=== PATIENT | female | born 1985 | race Caucasian/White ===

== ENCOUNTER 2024-07-18 09:37 | Inpatient (IN) | payer MEDICAID ==
[2024-07-18] MEDS ORDERED: Ondansetron 4 MG/2 ML SDV IVPUSH PRN (09:50)
[2024-07-18] MEDS ORDERED: Sodium Chloride 0.9% 10 ML Syringe FLUSH PRN (09:50)
[2024-07-18] MEDS ORDERED: Nalbuphine 10 MG/1 ML Vial IVPUSH PRN (09:50)
[2024-07-18] MEDS ORDERED: Lidocaine 1% 50 ML MDV INJECT PRN (09:50)
[2024-07-18] MEDS ORDERED: Oxytocin/0.9 % Sodium Chloride 30 UNIT/500 ML BAG IV SCH (10:00)
[2024-07-18] MEDS ORDERED: Lactated Ringers 1,000 ML IV SCH (10:00)
[2024-07-18] MEDS: Oxytocin 10 Units/1 ML SDV ONE (10:01)
[2024-07-18] MEDS ORDERED: Acetaminophen 325 MG Tab PO PRN (10:40)
[2024-07-18] MEDS: Benzocaine/Menthol 20%-0.5% Spray 78 GM Cannister TOP PRN (10:43)
[2024-07-18] MEDS: Witch Hazel Medicated Pads 40/Jar TOP PRN (10:44)
[2024-07-18 12:05] LABS: BASOPHILS PERCENT AUTO 0.1 % (0.0-1.0); EOSINOPHILS ABSOLUTE AUTO 0.1 K/mm3 (0.0-0.4); EOSINOPHILS PERCENT AUTO 0.3 % (0.0-6.0); HEMATOCRIT 35.1 % (37.0-47.0); IMMATURE GRAN ABSOLUTE AUTO 0.07 K/mm3 (0.00-0.05); IMMATURE GRAN PERCENT AUTO 0.4 % (0.0-0.4); LYMPHOCYTES PERCENT AUTO 5.6 % (24.0-44.0); MEAN CORPUSCULAR HEMOGLOBIN 28.5 pg (28.0-32.0); MEAN CORPUSCULAR HGB CONC 32.8 g/dl (32.0-36.0); MEAN PLATELET VOLUME 9.5 fl (9.4-12.3); MONOCYTES ABSOLUTE AUTO 0.5 K/mm3 (0.0-0.8); NEUTROPHILS ABSOLUTE AUTO 15.9 K/mm3 (1.8-7.7); NEUTROPHILS PERCENT AUTO 90.6 % (41.0-71.0); PLATELET COUNT,PLT 304 K/mm3 (150-400); RED BLOOD CELL COUNT 4.03 M/mm3 (4.10-5.30); WHITE BLOOD CELL COUNT,WBC 17.55 K/mm3 (3.9-11.3)
[2024-07-18 12:10] LABS: HEMOGLOBIN 11.5 gm/dl (12.0-16.0); MEAN CORPUSCULAR VOLUME 87.1 fl (83.0-99.0)
[2024-07-18] MEDS: Ibuprofen 600 MG Tab PO SCH (12:52)
[2024-07-18] MEDS: Oxytocin 10 Units/1 ML SDV IM ONE (15:29)
[2024-07-18] MEDS: Nicotine 14 MG/24 Hr Patch TRDERM SCH (19:54)
[2024-07-19] MEDS: buPROPion 150 MG Tab.ER PO SCH (10:19)
[2024-07-20] MEDS: Docusate Sodium 100 MG Cap PO PRN (07:00)
== END 2024-07-20 10:35 | disposition home or self-care (01) | DRG 807 ==
LOC: JD.OBCHECK 09:37 → JD.OB 09:38 → JD.OBCHECK 09:40 → JD.OB 09:42 → OBSVTOIN 09:52 → JD.OB 09:53
PROVIDERS: ADMIT Obstetrics & Gynecology; ATTEND Obstetrics & Gynecology
PROC: 10E0XZZ Delivery of Products of Conception, External Approach (ICD-10-PCS; principal; 2024-07-18)
PROC: 10907ZC Drainage of Amniotic Fluid, Therapeutic from Products of Conception, Via Natural or Artificial Opening (ICD-10-PCS; principal; 2024-07-18)
DX: O99.344 Other mental disorders complicating childbirth (principal); Z37.0 Single live birth; O99.334 Smoking (tobacco) complicating childbirth; F17.210 Nicotine dependence, cigarettes, uncomplicated; Z3A.37 37 weeks gestation of pregnancy; Z88.8 Allergy status to other drugs, medicaments and biological substances; Z79.899 Other long term (current) drug therapy
CPT/HCPCS: 36415; 59025; 59409; 85025; 86592; 86850; 86900; 86901; A9270-GY; J2590